=== PATIENT | female | born 1980 | race Caucasian/White ===

== ENCOUNTER 2020-12-08 19:01 | Emergency (ER) | payer BC, OTHER ==
[~2020-12-08 19:01] MED LIST: Sodium Chloride 0.9% 10 ML Syringe FLUSH PRN
[2020-12-08] MEDS ORDERED: Prochlorperazine 10 MG/2 ML SDV IV ONE (19:03)
[2020-12-08] MEDS ORDERED: HYDROmorphone 1 MG/ML Syringe IVPUSH ONE (19:04)
[2020-12-08] MEDS ORDERED: Sodium Chloride 0.9% 1,000 ML IV SCH (19:15)
[2020-12-08 19:43] LABS: PTT,PARTIAL THROMBOPLSTIN TIME 26.5 SEC (25.6-32.8)
[2020-12-08 19:57] LABS: CHLORIDE,CL 101 mmol/L (98-107); SODIUM,NA 138 mmol/L (136-145)
[2020-12-08 19:58] LABS: ANION GAP 15.8 mmol/L (5-15)
--- NOTE | 2020-12-08 20:03 | EDM.PDOC ---
ED HPI GENERAL MEDICAL PROBLEM - General Chief Complaint: Abdominal Pain Stated Complaint: SURGERY 2 WEEKS AGO ON ABDOMEN;NOT FEELING WELL Time Seen by Provider: 12/08/20 19:03 Source of Information: Reports: Patient History Limitations: Reports: No Limitations - History of Present Illness INITIAL COMMENTS - FREE TEXT/NARRATIVE: Pt. presents to ER with severe, crescendoing diffuse abdominal pain, vomiting, and nausea. She states that the discomfort woke her from sleep at 0300 this AM. Pt. states that the discomfort had gotten gradually worse throughout the day. She states that she has had many episodes of vomiting throughout the day today. Pt. denies any substernal chest pain, but complains of epigastric pain with retching. Denies any melena, hematochezia, or hematemesis. Pt. states that her daughter has been experiencing some nausea and diarrhea and they ate "the same thing" yesterday and are concerned she may have food poisoning. Pt. did undergo vaginal hysterectomy on 11/25/20. She states that postoperatively, she has had an uneventful course. She states that she continues to have some mild vaginal bleeding. Denies any significant symptoms until early this AM. Denies any history of fever or chills, vaginal discharge, or flank pain. - Related Data Allergies Allergy/AdvReac Type Severity Reaction Status Date / Time codeine Allergy Itching Verified 10/19/18 18:26 Past Medical History HEENT History: Reports: Impaired Vision Cardiovascular History: Reports: None Respiratory History: Reports: None POCKET MARKER History: Reports: Other Musculoskeletal History: SI fracture in 2000 Neurological History: Reports: None Psychiatric History: Reports: None Endocrine/Metabolic History: Reports: Obesity/BMI 30+ Hematologic History: Reports: None Immunologic History: Reports: None Oncologic (Cancer) History: Reports: None Dermatologic History: Reports: None - Infectious Disease History Infectious Disease History: Reports: None - Past Surgical History Head Surgeries/Procedures: Reports: None HEENT Surgical History: Reports: Tonsillectomy, Other (See Below) Other HEENT Surgeries/Procedures: throat stretched GI Surgical History: Reports: Cholecystectomy Female Surgical History: Reports: Section Social & Family History - Family History Family Medical History: No Pertinent Family History - Caffeine Use Caffeine Use: Reports: Coffee ED ROS GENERAL - Review of Systems Review Of Systems: See Below Constitutional: Reports: No Symptoms HEENT: Reports: No Symptoms Respiratory: Reports: No Symptoms Cardiovascular: Reports: No Symptoms Endocrine: Reports: No Symptoms GI/Abdominal: Reports: Abdominal Pain. Denies: Black Stool, Bloody Stool, Hematemesis, Hematochezia, Melena : Reports: No Symptoms Musculoskeletal: Reports: No Symptoms Skin: Reports: No Symptoms Neurological: Reports: No Symptoms Psychiatric: Reports: No Symptoms Hematologic/Lymphatic: Reports: No Symptoms Immunologic: Reports: No Symptoms ED EXAM, GENERAL - Physical Exam Exam: See Below Exam Limited By: No Limitations General Appearance: Alert, WD/WN, No Apparent Distress GI/Abdominal: Soft, Non-Tender, No Organomegaly, No Distention, No Mass (Female) Exam: Deferred Rectal (Female) Exam: Deferred Back Exam: Full Range of Motion. No: CVA Tenderness (L), CVA Tenderness (R) Extremities: Normal Inspection, Normal Range of Motion, No Pedal Edema Psychiatric: Normal Affect, Normal Mood Skin Exam: Warm, Dry, Intact, Normal Color, No Rash Lymphatic: No Adenopathy Course - Vital Signs Last Recorded V/S: Last Vital Signs Temp 36.8 C 12/08/20 19:29 Pulse 111 H 12/08/20 19:29 Resp 24 H 12/08/20 19:29 BP 104/64 12/08/20 19:29 Pulse Ox 96 12/08/20 19:29 - Orders/Labs/Meds Orders: Active Orders 24 hr Category Date Time Status Abdomen Pelvis w Cont [CT] Stat Exams 12/08/20 19:50 Taken Sodium Chloride 0.9% [Normal Saline] 1,000 ml Med 12/08/20 19:15 Active IV ASDIRECTED Sodium Chloride 0.9% [Saline Flush] Med 12/08/20 19:01 Active 10 ml FLUSH ASDIRECTED PRN Peripheral IV Insertion Adult [OM.PC] Routine Oth 12/08/20 19:02 Ordered Medication Orders Sodium Chloride (Normal Saline) 1,000 mls @ 1,000 mls/hr IV ASDIRECTED FABRICIO Last Admin: 12/08/20 19:10 Dose: 1,000 mls/hr Documented by: FERDNAC Sodium Chloride (Sodium Chloride 0.9% 10 Ml Syringe) 10 ml FLUSH ASDIRECTED PRN PRN Reason: Keep Vein Open Labs: Laboratory Tests 09/09/2212/08/20 12/08/20 Range/Units 19:03 19:03 19:03 WBC 9.3 (4.0-10.0) x10^3/uL RBC 4.61 (4.00-5.50) x10^6/uL Hgb 13.7 (12.0-16.0) g/dL Hct 39.4 (33.0-47.0) % MCV 85.5 (78.0-93.0) fL MCH 29.7 (26.0-32.0) pg MCHC 34.8 (32.0-36.0) g/dL RDW Coeff of Nicola 12.5 (10.0-15.0) % Plt Count 242 (130-400) x10^3/uL Immature Gran % (Auto) 0.10 (0.00-0.43) % Neut % (Auto) 88.5 H (50.0-80.0) % Lymph % (Auto) 6.0 L (25.0-50.0) % [place] % (Auto) 4.9 (2.0-11.0) % Eos % (Auto) 0.3 (0.0-4.0) % Baso % (Auto) 0.2 (0.2-1.2) % Neut # (Auto) 8.3 H (1.8-7.7) x10^3/uL Lymph # (Auto) 0.6 L (1.0-4.8) x10^3/uL [place] # (Auto) 0.5 (0.0-0.8) x10^3/uL Eos # (Auto) 0.0 (0.0-0.5) x10^3/uL Baso # (Auto) 0.0 (0.0-0.2) x10^3/uL Immature Gran # (Auto) 0.01 (0.00-0.07) x10^3/uL PT 9.8 L (9.9-12.5) SEC INR 0.9 L (2.0-3.5) APTT 26.5 (25.6-32.8) SEC Sodium 138 (136-145) mmol/L Potassium 3.8 (3.5-5.1) mmol/L Chloride 101 (98-107) mmol/L Carbon Dioxide 25 (21-32) mmol/L Anion Gap 15.8 H (5-15) mmol/L BUN 19 H (7-18) mg/dL Creatinine 0.8 (0.55-1.02) mg/dL Est Cr Clr Drug Dosing 85.80 mL/min Estimated GFR (MDRD) > 60 Glucose 103 H (70-99) mg/dL Lactic Acid (0.4-2.0) mmol/L Calcium 8.8 (8.5-10.1) mg/dL Corrected Calcium 8.9 (8.5-10.1) mg/dL Phosphorus 3.2 (2.6-4.7) mg/dL Magnesium 1.7 L (1.8-2.4) mg/dL Total Bilirubin 0.8 (0.2-1.0) mg/dL AST 14 L (15-37) U/L ALT 29 (14-59) U/L Alkaline Phosphatase 98 (46-116) U/L C-Reactive Protein 2.5 H (<=0.9) mg/dL Total Protein 7.3 (6.4-8.2) g/dL Albumin 3.9 (3.4-5.0) g/dL Globulin 3.4 Albumin/Globulin Ratio 1.15 Amylase 45 (25-115) U/L Lipase 147 (73-393) U/L Urine Color (YELLOW) Urine Appearance (CLEAR) Urine pH (5.0-8.0) Ur Specific [place] Urine Protein (NEGATIVE) mg/dL Urine Glucose (UA) (NEGATIVE) mg/dL Urine Ketones (NEGATIVE) mg/dL Urine Occult Blood (NEGATIVE) Urine Nitrite (NEGATIVE) Urine Bilirubin (NEGATIVE) Urine Urobilinogen (0.2) EU/dL Ur Leukocyte Esterase (NEGATIVE) Urine RBC (NOT SEEN) /HPF Urine WBC (NOT SEEN) /HPF Ur Squamous Epith Cells (NOT SEEN) /HPF Urine Bacteria (NOT SEEN) /HPF Urine Mucus (NOT SEEN) /LPF 12/08/20 12/08/20 Range/Units 19:03 19:53 WBC (4.0-10.0) x10^3/uL RBC (4.00-5.50) x10^6/uL Hgb (12.0-16.0) g/dL Hct (33.0-47.0) % MCV (78.0-93.0) fL MCH (26.0-32.0) pg MCHC (32.0-36.0) g/dL RDW Coeff of Nicola (10.0-15.0) % Plt Count (130-400) x10^3/uL Immature Gran % (Auto) (0.00-0.43) % Neut % (Auto) (50.0-80.0) % Lymph % (Auto) (25.0-50.0) % [place] % (Auto) (2.0-11.0) % Eos % (Auto) (0.0-4.0) % Baso % (Auto) (0.2-1.2) % Neut # (Auto) (1.8-7.7) x10^3/uL Lymph # (Auto) (1.0-4.8) x10^3/uL [place] # (Auto) (0.0-0.8) x10^3/uL Eos # (Auto) (0.0-0.5) x10^3/uL Baso # (Auto) (0.0-0.2) x10^3/uL Immature Gran # (Auto) (0.00-0.07) x10^3/uL PT (9.9-12.5) SEC INR (2.0-3.5) APTT (25.6-32.8) SEC Sodium (136-145) mmol/L Potassium (3.5-5.1) mmol/L Chloride (98-107) mmol/L Carbon Dioxide (21-32) mmol/L Anion Gap (5-15) mmol/L BUN (7-18) mg/dL Creatinine (0.55-1.02) mg/dL Est Cr Clr Drug Dosing mL/min Estimated GFR (MDRD) Glucose (70-99) mg/dL Lactic Acid 2.3 H* (0.4-2.0) mmol/L Calcium (8.5-10.1) mg/dL Corrected Calcium (8.5-10.1) mg/dL Phosphorus (2.6-4.7) mg/dL Magnesium (1.8-2.4) mg/dL Total Bilirubin (0.2-1.0) mg/dL AST (15-37) U/L ALT (14-59) U/L Alkaline Phosphatase (46-116) U/L C-Reactive Protein (<=0.9) mg/dL Total Protein (6.4-8.2) g/dL Albumin (3.4-5.0) g/dL Globulin Albumin/Globulin Ratio Amylase (25-115) U/L Lipase (73-393) U/L Urine Color Yellow (YELLOW) Urine Appearance Clear (CLEAR) Urine pH 5.5 (5.0-8.0) Ur Specific [place] 1.025 Urine Protein Negative (NEGATIVE) mg/dL Urine Glucose (UA) Negative (NEGATIVE) mg/dL Urine Ketones 15 H (NEGATIVE) mg/dL Urine Occult Blood Trace-lysed H (NEGATIVE) Urine Nitrite Negative (NEGATIVE) Urine Bilirubin Negative (NEGATIVE) Urine Urobilinogen 0.2 (0.2) EU/dL Ur Leukocyte Esterase Negative (NEGATIVE) Urine RBC 0-5 (NOT SEEN) /HPF Urine WBC 0-5 (NOT SEEN) /HPF Ur Squamous Epith Cells Occasional H (NOT SEEN) /HPF Urine Bacteria Rare (NOT SEEN) /HPF Urine Mucus Few H (NOT SEEN) /LPF Meds: Medications Generic Name Dose Route Start Last Admin Trade Name Freq PRN Reason Stop Dose Admin Sodium Chloride 1,000 mls @ 1,000 mls/hr 12/08/20 19:15 12/08/20 19:10 Normal Saline IV 1,000 mls/hr ASDIRECTED FABRICIO Administration Sodium Chloride 10 ml 12/08/20 19:01 Sodium Chloride 0.9% 10 Ml Syringe FLUSH ASDIRECTED PRN Keep Vein Open Discontinued Medications Generic Name Dose Route Start Last Admin Trade Name Freq PRN Reason Stop Dose Admin Hydromorphone HCl 1 mg 12/08/20 19:04 12/08/20 19:16 Hydromorphone 1 Mg/Ml Syringe IVPUSH 12/08/20 19:05 1 mg ONETIME ONE Administration Iopamidol 100 ml 12/08/20 20:05 12/08/20 20:25 Iopamidol 612 Mg/Ml 100 Ml Bottle IVPUSH 12/08/20 20:06 100 ml ONETIME ONE Administration Ondansetron HCl 1 packet 12/08/20 22:08 Take Home: Ondansetron 4 Mg Tab.Dis, 2 Tab Pack PO 12/08/20 22:09 ONETIME ONE Prochlorperazine Edisylate 10 mg 12/08/20 19:03 12/08/20 19:13 Prochlorperazine 10 Mg/2 Ml Sdv IV 12/08/20 19:04 10 mg ONETIME ONE Administration Departure - Departure Time of Disposition: 22:32 Disposition: Home, Self-Care 01 Clinical Impression: Ileus, Gastroenteritis, Dehydration - Discharge Information Instructions: Ondansetron oral dissolving tablet Referrals: Cristina Posadas DO [Primary Care Provider] - Forms: ED Department Discharge Additional Instructions: Zofran ODT 4mg 1 tab every 6 hours for nausea/vomiting Clear liquid diet only tomorrow Recheck in clinic in 7-10 days Sepsis Event Note (ED) - Evaluation Sepsis Screening Result: No Definite Risk - Focused Exam Vital Signs: Vital Signs Temp Pulse Resp BP Pulse Ox 12/08/20 19:29 36.8 C 111 H 24 H 104/64 96 - Problem List Review Problem List Initiated/Reviewed/Updated: Yes - My Orders Last 24 Hours: My Active Orders 12/08/20 19:01 Sodium Chloride 0.9% [Saline Flush] 10 ml FLUSH ASDIRECTED PRN 12/08/20 19:02 Peripheral IV Insertion Adult [OM.PC] Routine 12/08/20 19:15 Sodium Chloride 0.9% [Normal Saline] 1,000 ml IV ASDIRECTED 12/08/20 19:50 Abdomen Pelvis w Cont [CT] Stat - Assessment/Plan Last 24 Hours: My Active Orders 12/08/20 19:01 Sodium Chloride 0.9% [Saline Flush] 10 ml FLUSH ASDIRECTED PRN 12/08/20 19:02 Peripheral IV Insertion Adult [OM.PC] Routine 12/08/20 19:15 Sodium Chloride 0.9% [Normal Saline] 1,000 ml IV ASDIRECTED 12/08/20 19:50 Abdomen Pelvis w Cont [CT] Stat Plan: Discusses findings with patient and family. She was hydrated with almost 2 liters of normal saline in ER. Pain was controlled with IV dilaudid and compazine. Pt. reported significant improvement in discomfort/nausea/vomiting with these medications. Pt. requesting discharge before full second liter of fluid infused-approx. 250ml left. She was started on zofran ODT 4mg 1 every 6 hours as needed for nausea/vomiting. Clear liquids only tomorrow. She can slowly advance diet to contain bananas, rice, toast, crackers, etc, in subsequent days. Return to ER if unable to hold down fluids.
[2020-12-08] MEDS ORDERED: Iopamidol 612 MG/ML 100 ML Bottle IVPUSH ONE (20:05)
[2020-12-08] MEDS ORDERED: Take Home: Ondansetron 4 MG Tab.DIS, 2 Tab Pack PO ONE (22:08)
--- NOTE | 2020-12-09 09:13 | CT ---
[id number] CT/CT Abdomen Pelvis W IV EXAM: CT Abdomen Pelvis W IV CLINICAL DATA: ABDOMINAL PAIN, NAUSEA, VOMITING, RECENT HYST COMPARISON STUDY: 05/25/2019. FINDINGS: Dependent atelectasis at the lung bases bilaterally. Liver, spleen, pancreas, adrenal glands, and kidneys are unremarkable. There are a few prominent fluid-filled loops of small bowel without transition point identified. No lymphadenopathy, or pneumoperitoneum. The gallbladder and uterus are surgically absent. Trace free fluid within the pelvis. Surgical changes of the right SI joint. No fracture or osseous lesion. IMPRESSION: A few prominent fluid-filled loops of small bowel without transition point. Findings are consistent with postsurgical ileus. French Orta DO 12/09/20 0912 Thank you for allowing us to participate in the care of your patient.
== END 2020-12-08 22:00 | disposition home or self-care (01) ==
LOC: VM.ED 19:01
DX: K52.9 Noninfective gastroenteritis and colitis, unspecified (principal); K56.7 Ileus, unspecified; E86.0 Dehydration; E66.9 Obesity, unspecified; Z88.5 Allergy status to narcotic agent; Z68.38 Body mass index [BMI] 38.0-38.9, adult
CPT/HCPCS: 74177; 80053; 81001; 82150; 83605; 83690; 83735; 84100; 85025; 85610; 85730; 86140; 96374; 96375; 99284; 99284-25; A9270-GY; J0780; J1170; J7030; Q9967